=== PATIENT | female | born 1970 | race Hispanic/Latino ===

== ENCOUNTER 2022-07-31 17:57 | Emergency (ER) | payer OTHER, SELFPAY ==
[~2022-07-31 17:57] MED LIST: Iopamidol-370 76% 500 ML 1 ML ONE
[2022-07-31] MEDS ORDERED: Ondansetron PF 4 MG/2 ML Vial ONE ×2 (19:02→19:41)
[2022-07-31] MEDS ORDERED: Morphine 4 MG/ML VIAL ONE (19:02)
[2022-07-31] MEDS ORDERED: Aspirin Chewable 81 MG TAB ONE (19:02)
[2022-07-31 19:27] LABS: #Eosinphils 0.1 thou/uL (0.0-0.7); #Lymphocytes 2.4 thou/uL (1.20-3.40); #Monocytes 0.8 thou/uL (0.11-0.59); #Neutrophils 5.9 thou/uL (1.40-6.50); %Basophils 0.4 % (0.0-1.0); %Eosinophils 0.9 % (0.0-10.0); %Lymphocytes 26.2 % (21.0-51.0); %Monocytes 8.3 % (0.0-10.0); %Neutrophils 64.3 % (42.0-75.0); Mean Corpuscular HGB CONC 34.4 g/dL (32.0-36.0); Mean Corpuscular Hemoglobin 30.5 pg (27.0-31.0); Mean Corpuscular Volume 88.5 fl (78.0-98.0); Mean Platelet Volume 7.4 fL (7.4-10.4); Platelet Count 309 10x3/uL (130-400); RBC Distribution Width 11.2 % (11.5-14.5); Red Blood Cell (RBC) Count 4.59 mill/uL (4.20-5.40); White Blood Cell (WBC) Count 9.1 10x3/uL (4.8-10.8)
[2022-07-31 19:48] LABS: ALT (SGPT) 19 U/L (8-55); AST (SGOT) 17 U/L (5-34); Alkaline Phosphatase 72 U/L (40-110); Anion Gap 12 mmol/L (10-20); BUN (Urea Nitrogen) 17 mg/dL (9.8-20.1); Bilirubin, Total 0.7 mg/dL (0.2-1.2); Calc. Creatinine Clearance 0 mL/min (70-130); Calcium 8.9 mg/dL (7.8-10.44); Carbon Dioxide 22 mmol/L (22-29); Chloride 99 mmol/L (98-107); Estimated GFR 105; Globulin 3.7 g/dL (2.4-3.5); Glucose 105 mg/dL (70-105); Lipase 16 U/L (8-78); Potassium 3.4 mmol/L (3.5-5.1); Protein, Total 7.7 g/dL (6.0-8.3); Sodium 130 mmol/L (136-145)
[2022-07-31] MEDS ORDERED: Fentanyl 100 MCG/2 ML VIAL ONE (19:54)
[2022-07-31] MEDS ORDERED: Ketorolac Tromethamine 30 MG/ML VIAL ONE (19:54)
[2022-07-31 20:30] LABS: Bacteria/HPF None Seen HPF (None Seen); Bilirubin Negative (Negative); Blood, Urine Trace (Negative); Clarity Clear (Clear); Glucose, Urine (Dipstick) Normal (Negative); Ketone, Urine Negative (Negative); Leukocyte 25 Leu/uL (Negative); Nitrite Negative (Negative); Protein, Urine (Dipstick) Negative (Neg-Trace); RBC/HPF 0-3 HPF (0-3); Specific Gravity, Urine 1.013 (1.002-1.036); Squamous Epithelial 0-3 HPF (0-3); Urobilinogen Normal mg/dL (Less than 2); WBC/HPF 0-3 HPF (0-3)
== END 2022-07-31 21:30 | disposition home or self-care (01) ==
LOC: ERS 17:57
DX: R10.13 Epigastric pain (principal); R07.9 Chest pain, unspecified; E78.5 Hyperlipidemia, unspecified; Z79.899 Other long term (current) drug therapy
CPT/HCPCS: 71045; 74177; 80053; 81003; 81015; 83690; 83880; 84484; 85025; 93005; 96374; 96375; J1885; J2270; J2405; J3010; Q9967

== ENCOUNTER 2022-10-01 09:12 | Emergency (ER) | payer BC ==
[2022-10-01] MEDS ORDERED: Dexamethasone 10 MG/ML VIAL ONE (10:26)
== END 2022-10-01 10:45 | disposition home or self-care (01) ==
LOC: ERS 09:12
DX: J18.9 Pneumonia, unspecified organism (principal); E78.5 Hyperlipidemia, unspecified; Z79.899 Other long term (current) drug therapy
CPT/HCPCS: 71045; 96372; J1100

== ENCOUNTER → 2023-11-16 | Emergency (ER) | payer BC | LOC: ERS 15:09 | DX: S66.411A Strain of intrinsic muscle, fascia and tendon of right thumb at wrist and hand level, initial encounter (principal); X50.0XXA Overexertion from strenuous movement or load, initial encounter; Y93.E5 Activity, floor mopping and cleaning ==